=== PATIENT | male | born 1995 | race African-American/Black ===

== ENCOUNTER 2019-12-08 15:45 | Emergency (ER) | payer SELFPAY ==
--- NOTE | 2019-12-08 17:33 | CT ---
EXAM: CT brain without contrast HISTORY: Headaches COMPARISON: 05/08/2011 TECHNIQUE: Multiple contiguous axial images were obtained and a CT of the brain without contrast. FINDINGS: The brain is normal in morphology and attenuation without focal lesions or confluent areas of infarction. There is no evidence of hydrocephalus, intracranial hemorrhage, or extra-axial fluid collection. The calvarium and overlying soft tissues are unremarkable. The visualized paranasal sinuses and masto id air cells are well aerated. IMPRESSION: No evidence of acute intracranial abnormality
--- NOTE | 2019-12-08 17:34 | RAD ---
EXAM: Chest 2 views: HISTORY: Chest fluttering COMPARISON: None. FINDINGS: There is a normal-sized cardiomediastinal silhouette. There is no evidence of consolidation, mass, or pleural effusion. The bones are unremarkable. IMPRESSION: No evidence of acute cardiopulmonary disease
--- NOTE | 2019-12-13 10:54 | EKG ---
Test Reason : Blood Pressure : / mmHG Vent. Rate : 043 BPM Atrial Rate : 043 BPM P-R Int : 172 ms QRS Dur : 104 ms QT Int : 440 ms P-R-T Axes : 016 089 040 degrees QTc Int : 371 ms Marked sinus bradycardia Abnormal ECG Confirmed by ASIF DORMAN D.O. ([id number]), editor in chief ASYA MORALES ([id number] on 12/13/2019 10:53:38 AM Referred By: Confirmed By:ASIF DORMAN D.O.
== END 2019-12-08 18:18 | disposition home or self-care (01) ==
LOC: ERS 15:45
DX: R51 Headache (principal)
CPT/HCPCS: 70450; 71046; 93005

== ENCOUNTER 2019-12-20 23:34 | Emergency (ER) | payer OTHER, SELFPAY | END 2019-12-20 23:50 | disposition home or self-care (01) | LOC: ERS 23:34 | DX: S16.1XXA Strain of muscle, fascia and tendon at neck level, initial encounter (principal); X58.XXXA Exposure to other specified factors, initial encounter | CPT/HCPCS: 99283 ==

== ENCOUNTER 2019-12-29 13:34 | Emergency (ER) | payer OTHER | END 2019-12-29 14:35 | disposition home or self-care (01) | LOC: ERS 13:34 | DX: R00.2 Palpitations (principal); F41.9 Anxiety disorder, unspecified | CPT/HCPCS: 93005 ==